=== PATIENT | male | born 1995 ===

== ENCOUNTER 2017-11-20 02:23 | Emergency (ER) | payer SELFPAY ==
--- NOTE | 2017-11-20 02:30 | ER Report ---
History and Physical Time Seen By MD: 02:31 Hx. of Stated Complaint: Pt under influence of ETOH and brought in for long-term clearance. Pt refusing treatment. HPI/ROS 22-year-old male brought to the emergency department for clearance. The patient is mostly uncooperative, but is in no distress and admits to drinking alcohol. He denies any other illicit drug use. Denies pain or any trauma. The patient is perseverating about his grandfather being a physician and also states that he attends [facility]. Allergies: Coded Allergies: UNABLE TO OBTAIN (Unverified , 11/20/17) PT HERE FOR RESIDENTIAL CLEARANCE AND IS REFUSING TREATMENT. Unable To Obtain Past Medical: Refused Reviewed Nurses Notes: Yes Old Medical Records Reviewed: No Physical Exam General Appearance: The patient is alert, has no immediate need for airway protection and no current signs of toxicity. Eyes: Pupils equal and round no injection. The patient is refusing the physical exam Medical Decision Making ED Course/Re-evaluation ED Course 22-year-old male to the emergency department intoxicated and in need of 2-year- old clearance. Other than appearing intoxicated the patient is refusing vital signs and refusing a physical exam there is no obvious trauma. He does not appear in distress. He does admit to drinking alcohol. Denies any other illicit drug use or ingestions. He is cleared for long-term. Decision to Disposition Date: Nov 20, 2017 Decision to Disposition Time: 02:36 Depart Departure Impression: Primary Impression: Alcohol intoxication Condition: Improved [facility] F Problem Qualifiers Primary Impression: Alcohol intoxication Complication of substance-induced condition: with unspecified complication Qualified Codes: F10.929 - Alcohol use, unspecified with intoxication, unspecified JOSE A SMITH MD Nov 20, 2017 02:30
== END 2017-11-20 02:35 ==
LOC: ER 02:28
DX: F10.920 Alcohol use, unspecified with intoxication, uncomplicated (principal)
CPT/HCPCS: 99282